=== PATIENT | male | born 1985 | race African-American/Black ===

== ENCOUNTER 2019-03-18 05:41 | Emergency (ER) | payer SELFPAY ==
[~2019-03-18] VITALS: Ht 180.3 cm; Wt 79.1 kg
[~2019-03-18 05:41] MED LIST: AMOXICILLIN500 MG OR; AMOXICILLIN875 MG OR; NAPROSYN500 MG PO
[2019-03-18] MEDS ORDERED: AMOXICILLIN500 MG PO (06:04)
[2019-03-18 06:35] VITALS: BP 131/80
== END 2019-03-18 06:30 | disposition home or self-care (01) | DRG 153 ==
LOC: ED 05:41
DX: J02.9 Acute pharyngitis, unspecified (principal); F17.210 Nicotine dependence, cigarettes, uncomplicated

== ENCOUNTER 2019-04-09 11:30 | Emergency (ER) | payer OTHER ==
[~2019-04-09] VITALS: Ht 180.3 cm; Wt 70.0 kg
[~2019-04-09 11:30] MED LIST changes: +AMOXICILLIN500 MG PO
[2019-04-09 11:59] LABS: HEMATOCRIT 45.3 % (39.0-50.0); HEMOGLOBIN 13.8 g/dl (14.0-18.0); IMMATURE GRANULOCYTES 0.8 % (0.0-5.0); MEAN CORPUSCULAR HGB 26.8 pG CALC (26.0-32.0); MEAN CORPUSCULAR HGB CONC 30.5 g/L CALC (32.0-36.0); NEUT# 3.7 thou/uL (1.82-7.42); RED BLOOD COUNT 5.15 mill/uL (4.70-6.10); RED CELL DISTRI WIDTH 12.7 % (11.5-15.5)
[2019-04-09 12:00] VITALS: BP 122/66
[2019-04-09 12:20] LABS: ALKALINE PHOSPHATASE 81 u/l (38-126); ANION GAP 15 (6-22 (CALC)); BUN 15 mg/dL (9-20); BUN/CREATININE RATIO 14 (12-20 (CALC)); CARBON DIOXIDE 24 mmol/l (22-30); CHLORIDE 106 mmol/l (95-108); GFR > 60 ML/MIN (>=60 (CALC)); GFR FOR AFR.AMER. > 60 ML/MIN (>=60 (CALC)); POTASSIUM 4.6 mmol/l (3.5-5.1); SGOT/AST 26 u/l (17-59); SODIUM 139 mmol/l (137-146); TOTAL PROTEIN 7.5 g/dL (6.3-8.2)
[2019-04-09 12:25] LABS: BILIRUBIN, TOTAL 0.5 mg/dL (0.0-1.4)
[2019-04-09 12:32] LABS: MYOGLOBIN 21 ng/mL (0 - 121)
[2019-04-09 12:43] LABS: URINE BILIRUBIN - DIPSTICK NEGATIVE (NEGATIVE); URINE BLOOD DIPSTICK NEGATIVE (NEGATIVE); URINE COLOR YELLOW; URINE GLUCOSE - DIPSTICK NEGATIVE (NEGATIVE); URINE KETONE NEGATIVE (NEGATIVE); URINE LEUK ESTERASE NEGATIVE (NEGATIVE); URINE NITRITE - DIPSTICK NEGATIVE (Negative); URINE PH 6.5 (4.5-8.0); URINE PROTEIN - DIPSTICK 30 mg/dL (NEG-TRACE); URINE SPECIFIC GRAVITY >=1.030; URINE UROBILINOGEN - DIPSTICK 0.2 E.U./dL (0.2)
[2019-04-09 12:44] LABS: URINE RBC 0-2 RBC/hpf (0-5); URINE WBC 0-2 WBC/hpf (0-5)
[2019-04-09 12:47] LABS: BARBITURATES NEGATIVE (NEGATIVE); COCAINE NEGATIVE (NEGATIVE); METHADONE NEGATIVE (NEGATIVE); OXCYCODONE NEGATIVE (NEGATIVE); TETRAHYDROCANNABIONOL NEGATIVE (NEGATIVE); TRICYLIC ANTIDEPRESSANTS NEGATIVE (NEGATIVE)
== END 2019-04-09 13:45 | disposition short-term general hospital (02) | DRG 72 ==
LOC: ED 11:30
PROVIDERS: Emergency Medicine
DX: G93.89 Other specified disorders of brain (principal); F17.200 Nicotine dependence, unspecified, uncomplicated
CPT/HCPCS: Q9967

== ENCOUNTER 2023-04-17 00:15 | Emergency (ER) | payer SELFPAY ==
[~2023-04-17] VITALS: Ht 180.3 cm; Wt 79.0 kg
[2023-04-17 00:28] VITALS: BP 112/75
[2023-04-17 00:30] VITALS: BP 112/76
[2023-04-17 00:34] VITALS: BP 112/76
[2023-04-17 00:50] LABS: EOS% 0.2 % (0-8); HEMATOCRIT 43.9 % (39.0-50.0); HEMOGLOBIN 13.8 g/dl (14.0-18.0); IMMATURE GRANULOCYTES 0.8 % (0.0-5.0); LYMPH% 20.3 % (15-41); MEAN CORPUSCULAR HGB 26.1 pG CALC (26.0-32.0); MEAN CORPUSCULAR HGB CONC 31.4 g/dL CAL (32.0-36.0); MONO% 8.8 % (2-13); NEUT# 3.66 thou/uL (1.82-7.42); NEUT% 69.9 % (42-76); RED BLOOD COUNT 5.28 mill/uL (4.70-6.10); RED CELL DISTRI WIDTH 12.5 % (11.5-15.5)
[2023-04-17 01:11] LABS: MEAN CELL VOLUME 83.1 fL CALC (80.0-100.0)
[2023-04-17 01:18] LABS: ANION GAP 12 (6-22 (CALC)); BUN 10 mg/dL (9-20); BUN/CREATININE RATIO 9 (12-20 (CALC)); CARBON DIOXIDE 27 mmol/l (22-30); CHLORIDE 102 mmol/l (95-108); CREATININE 1.1 mg/dL (0.7-1.3); GFR FOR AFR.AMER. > 60 ML/MIN (>=60 (CALC)); GFR OTHER RACES > 60 ML/MIN (>=60 (CALC)); SODIUM 137 mmol/l (137-146)
[2023-04-17 01:23] LABS: POTASSIUM 3.7 mmol/l (3.5-5.1)
[2023-04-17] MEDS ORDERED: VIBRAMYCIN100 M2 PO (01:36)
== END 2023-04-17 01:40 | disposition home or self-care (01) | DRG 203 ==
LOC: ED 00:15
PROVIDERS: Family Medicine
DX: J20.9 Acute bronchitis, unspecified (principal); F17.200 Nicotine dependence, unspecified, uncomplicated; Z20.822 Contact with and (suspected) exposure to COVID-19